=== PATIENT | female | born 1955 | race Caucasian/White ===

== ENCOUNTER 2019-05-12 12:22 | Emergency (ER) | payer OTHER ==
[2019-05-12] MEDS ORDERED: FENTANYL CITRATE INJ/PF 100 MCG/2 ML AMPUL IV ONE (13:40)
[2019-05-12] MEDS ORDERED: KETOROLAC TROMETHAMINE INJ/PF 30 MG/1 ML SDV IV ONE (13:40)
--- NOTE | 2019-05-12 13:45 | ER Document Report ---
ED Fall - General Chief Complaint: Fall Stated Complaint: FALL/KNEE PAIN Time Seen by Provider: 05/12/19 13:21 Primary Care Provider: SIDNEY MCMAHON III, MD [Primary Care Provider] - Follow up as needed DURAN ALAMO JR, DO [ACTIVE PROVISIONAL STAFF] - Follow up as needed Mode of Arrival: Medic Information source: Patient Notes: Otherwise healthy 63-year-old female presenting to the emergency department chief complaint of left leg pain after tripping and falling. Patient reports severe pain to her posterior left leg from the knee up to the buttock. She reports that she felt multiple pops and then immediate pain. She reports she is otherwise healthy and does not take any daily medications. TRAVEL OUTSIDE OF THE [place] IN LAST 30 DAYS: No - Related data Allergies/Adverse Reactions: Sulfa (Sulfonamide Antibiotics) Allergy (Mild, Verified 05/12/19 12:49) codeine [Codeine] Adverse Reaction (Verified 05/12/19 12:49) erythromycin base [Erythromycin Base] Adverse Reaction (Verified 05/12/19 12:49) Past Medical History - General Information source: Patient - Social History Smoking Status: Never Smoker Frequency of alcohol use: Occasional Drug Abuse: None Family History: None Patient has suicidal ideation: No Patient has homicidal ideation: No - Medical History Medical History: Negative Past Surgical History: Reports: Hx Hysterectomy, Hx Orthopedic Surgery - gaglian cyst, Hx Tubal Ligation - Immunizations Hx Diphtheria, Pertussis, Tetanus Vaccination: Yes Review of Systems - Review of Systems Constitutional: No symptoms reported EENT: No symptoms reported Cardiovascular: No symptoms reported Respiratory: No symptoms reported Gastrointestinal: No symptoms reported Genitourinary: No symptoms reported Female Genitourinary: No symptoms reported Musculoskeletal: See HPI Skin: No symptoms reported Hematologic/Lymphatic: No symptoms reported Neurological/Psychological: No symptoms reported Physical Exam - Vital signs Vitals: Temp Pulse Resp BP Pulse Ox 97.7 F 56 L 18 153/83 H 98 05/12/19 12:45 05/12/19 12:45 05/12/19 12:45 05/12/19 12:45 05/12/19 12:45 - Notes Notes: PHYSICAL EXAMINATION: GENERAL: Well-appearing, well-nourished and in no acute distress. HEAD: Atraumatic, normocephalic. EYES: Pupils equal round and reactive to light, extraocular movements intact, conjunctiva are normal. ENT: Nares patent, oropharynx clear without exudates. Moist mucous membranes. NECK: Normal range of motion, supple without lymphadenopathy LUNGS: Breath sounds clear to auscultation bilaterally and equal. No wheezes rales or rhonchi. HEART: Regular rate and rhythm without murmurs ABDOMEN: Soft, nontender, nondistended abdomen. No guarding, no rebound. No masses appreciated. Female : deferred Musculoskeletal: Limited range of motion to left lower extremity, strong dorsalis pedis pulse, normal motor and sensation distal to area of concern. No obvious swelling, erythema or ecchymosis. NEUROLOGICAL: Cranial nerves grossly intact. Normal sensory, motor exams PSYCH: Normal mood, normal affect. SKIN: Warm, Dry, normal turgor, no rashes or lesions noted. Course - Re-evaluation Re-evalutation: CT lower extremity was unremarkable. Patient now has full range of motion of the left lower extremity, exam unremarkable. Dr. Harden came to the bedside to evaluate the patient. Patient is now able to ambulate with a relatively steady gait. She will be offered crutches and will be encouraged to follow-up with orthopedics. - Vital Signs Vital signs: Temp Pulse Resp BP Pulse Ox 97.3 F 73 16 143/75 H 96 05/12/19 17:16 05/12/19 17:16 05/12/19 17:16 05/12/19 17:16 05/12/19 17:16 Procedures - Immobilization Left lower extremity Immobilizer type: Crutches Discharge - Discharge Clinical Impression: Left leg pain Condition: Stable Disposition: HOME, SELF-CARE Additional Instructions: The CT of your leg today was reassuring. Likely you experience some extreme muscle spasms after your fall. Please take ibuprofen 600 mg every 6 hours for pain. Use the narcotic pain medication for severe pain only. I am giving you contact information for Dr. Alamo, he has an orthopedic doctor. Follow-up with him if your pain persists over the next 1 to 2 days. Prescriptions: Methocarbamol [Robaxin 750 mg Tablet] 750 mg PO Q4 #24 tablet Referrals: SIDNEY MCMAHON III, MD [Primary Care Provider] - Follow up as needed DURAN ALAMO JR, [ACTIVE PROVISIONAL STAFF] - Follow up as needed
--- NOTE | 2019-05-12 14:57 | RADIOLOGY REPORT (SQ) ---
EXAM DESCRIPTION: CT LT LOWER EXTREMITY WITHOUT COMPLETED DATE/TIME: 05/12/2019 2:28 pm REASON FOR STUDY: fall, eval for fx vs tendon rupture COMPARISON: None. TECHNIQUE: Sequential CT images of the left lower extremity were obtained in the axial plane without intravenous contrast. Coronal sagittal reformats are reconstructed from the axial data. All CT scanners at this facility use dose modulation, iterative reconstruction, and/or weight based d osing when appropriate to reduce radiation dose to as low as reasonably achievable (ALARA). [facility]: Dose Right [facility]: CareDose [facility]: Dose Right [facility]: Teradose 4D [facility]: Profitero RADIATION DOSE: CT Rad equipment meets quality standard of care and radiation dose reduction techniq ues were employed. CTDIvol: 4.1 mGy. DLP: 252 mGy-cm. LIMITATIONS: None. FINDINGS: PELVIC BONES: The osseous irregularity of the left ischial tuberosity is nonspecific and c ould represent enthesophytes at the tendinous insertions of the semimembranous, biceps femoris or aiden itendinosus tendons. LEFT HIP: No acute fracture or dislocation. The joint space is preserved. LOWER EXTREMITY: The left femur is intact without a fracture, osseous lesion or periosteal bone form ation. SOFT TISSUES: No abnormality. The quadriceps and patellar tendons are intact. There is no suprapate llar joint effusion. OTHER: No other finding. IMPRESSION: No acute osseous abnormality of the left hip or proximal left lower extremity. The osseo us irregularity of the left ischial tuberosity is nonspecific and could represent enthesophytes at th e tendinous insertions of the semimembranous, biceps femoris or semitendinosus tendons. If there is concern for tendinous injury correlation with MRI is recommended. TECHNICAL DOCUMENTATION: JOB ID: [id number] Quality ID # [id number]: Final reports with documentation of one or more dose reduction techniques (e.g., Au tomated exposure control, adjustment of the mA and/or kV according to patient size, use of iterative reconstruction technique) 2010 [employer]- All Rights Reserved Reading location - IP/workstation name: [email or web address]
[2019-05-12 17:21] VITALS: BP 143/75
== END 2019-05-12 17:23 | disposition home or self-care (01) ==
LOC: ER 12:22
DX: M79.605 Pain in left leg (principal); W01.0XXA Fall on same level from slipping, tripping and stumbling without subsequent striking against object, initial encounter
CPT/HCPCS: 99284; 96374; 96375; 73700; J3010; J1885